=== PATIENT | female | born 1945 | race Caucasian/White ===

== ENCOUNTER → 2021-03-22 | Outpatient (CLI) | payer MEDICARE, BC | LOC: KOH-I 12:04 | DX: I83.90 Asymptomatic varicose veins of unspecified lower extremity (principal); I73.9 Peripheral vascular disease, unspecified; M25.569 Pain in unspecified knee; M17.11 Unilateral primary osteoarthritis, right knee | CPT/HCPCS: 73564; 93922; 93925 ==

== ENCOUNTER → 2021-06-04 | Outpatient (CLI) | payer MEDICARE, BC | LOC: US 09:18 | DX: M51.36 Other intervertebral disc degeneration, lumbar region (principal); I70.0 Atherosclerosis of aorta; M51.37 Other intervertebral disc degeneration, lumbosacral region | CPT/HCPCS: 72148; 93979 ==

== ENCOUNTER → 2021-12-04 | Outpatient (CLI) | payer OTHER | LOC: ECHO 11:15 | DX: R01.1 Cardiac murmur, unspecified (principal); I08.3 Combined rheumatic disorders of mitral, aortic and tricuspid valves | CPT/HCPCS: ECHO; 93306 ==

== ENCOUNTER → 2022-05-13 | Outpatient (CLI) | payer OTHER ==
[2022-05-13 13:29] LABS: BUN/CREATININE RATIO 33 (0-10)
[2022-05-14 11:14] LABS: CREATININE, URINE 24.4 mg/dL (Not Estab.); MICROALB/CREAT RATIO <12 (0-29)
== END ==
LOC: CT 12:18
PROVIDERS: Internal Medicine
DX: I10 Essential (primary) hypertension (principal); E83.52 Hypercalcemia; E78.5 Hyperlipidemia, unspecified; E11.9 Type 2 diabetes mellitus without complications; R10.9 Unspecified abdominal pain; Z79.899 Other long term (current) drug therapy; K57.30 Diverticulosis of large intestine without perforation or abscess without bleeding
CPT/HCPCS: 36415; 80053; 82043; 82330; 82570; 82607; 82746; 83036; 83605; 83970; 84439; 84443; 85652; 86140; Q9967